=== PATIENT | male | born 1945 | race Caucasian/White ===

== ENCOUNTER 2020-08-31 13:34 | Inpatient (IN) | payer OTHER ==
[~2020-08-31] VITALS: Ht 188 cm; Wt 88.5 kg
[2020-08-31 13:42] VITALS: BP 138/69
[2020-08-31] MEDS ORDERED: LIPITOR80 MG PO (13:52)
[2020-08-31] MEDS ORDERED: PLAVIX 75 MG TA75 MG PO (13:52)
[2020-08-31] MEDS ORDERED: ASA81BEC PO (13:53)
[2020-08-31 14:17] LABS: ABSOLUTE EOSINOPHILS 0.1 thou/uL (0.0-0.7); ABSOLUTE LYMPHOCYTES 1.9 thou/uL (0.8-5.3); ABSOLUTE MONOCYTES 0.7 thou/uL (0.0-1.2); ABSOLUTE NEUTROPHILS 3.7 thou/uL (1.6-8.1); BASOPHILS 0.4 %; EOSINOPHILS 0.9 %; HEMATOCRIT 39.2 % (42.0-52.0); HEMOGLOBIN 13.3 gm/dL (14.0-18.0); LYMPHOCYTES 30.1 %; MCH 30.6 pg (26.0-34.0); MCHC 34.1 g/dL (28.0-37.0); MCV 89.9 fL (80.0-100.0); MONOCYTES 10.5 %; MPV 8.3 fl. (7.2-11.1); NUCLEATED RBCS 0 /100WBC; PLATELET COUNT* 209 thou/uL (150-400); POLYS 58.1 %; RBC 4.36 mil/uL (4.50-6.00); RDW-CV 13.8 % (10.5-14.5); WBC 6.4 thou/uL (4.0-11.0)
[2020-08-31 14:27] LABS: CALCIUM 8.4 mg/dL (8.5-10.1); CREATININE 1.2 mg/dL (0.6-1.3); POTASSIUM 3.7 mmol/L (3.5-5.1)
[2020-08-31 14:29] LABS: APTT 25.5 Seconds (25.0-31.3); PROTIME 10.6 Seconds (9.20-11.50)
[2020-08-31 14:40] LABS: ALBUMIN 2.9 g/dL (3.4-5.0); TOTAL BILIRUBIN 0.8 mg/dL (<0.1-1.0); TOTAL PROTEIN 6.3 g/dL (6.4-8.2)
--- NOTE | 2020-08-31 15:17 | EKG ---
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
[2020-08-31 16:08] LABS: URINE BILIRUBIN NEGATIVE (Negative); URINE BLOOD NEGATIVE (Negative); URINE CLARITY CLEAR; URINE COLOR YELLOW; URINE GLUCOSE-RANDOM NEGATIVE (Negative); URINE KETONES NEGATIVE (Negative); URINE LEUKOCYTES-REFLEX NEGATIVE (Negative); URINE NITRITE-REFLEX NEGATIVE (Negative); URINE PROTEIN NEGATIVE (Negative); URINE SPECIFIC GRAVITY 1.025 (1.005-1.030); URINE UROBILINOGEN 0.2 E.U./dl (0.2-1.0)
[2020-08-31 20:24] VITALS: BP 114/71
[2020-08-31 21:00] VITALS: BP 131/69
[2020-09-01] VITALS: BP 115/67
[2020-09-01 05:31] LABS: HEMATOCRIT 36.7 % (42.0-52.0); HEMOGLOBIN 12.6 gm/dL (14.0-18.0); MCH 31.3 pg (26.0-34.0); MCHC 34.4 g/dL (28.0-37.0); MPV 8.1 fl. (7.2-11.1); RBC 4.03 mil/uL (4.50-6.00); RDW-CV 13.8 % (10.5-14.5); WBC 5.2 thou/uL (4.0-11.0)
[2020-09-01 05:51] LABS: ALBUMIN 2.6 g/dL (3.4-5.0); CREATININE 0.9 mg/dL (0.6-1.3); MAGNESIUM 1.9 mg/dL (1.8-2.4); TOTAL BILIRUBIN 0.5 mg/dL (<0.1-1.0); TOTAL PROTEIN 5.8 g/dL (6.4-8.2)
[2020-09-01 06:40] VITALS: BP 132/78
[2020-09-01 09:30] VITALS: BP 105/65
[2020-09-01 12:01] VITALS: BP 123/66
[2020-09-01 16:34] VITALS: BP 105/63
[2020-09-01 21:30] VITALS: BP 108/63
[2020-09-02 01:02] VITALS: BP 122/69
[2020-09-02 05:08] VITALS: BP 124/70
[2020-09-02 05:10] LABS: HEMOGLOBIN 11.9 gm/dL (14.0-18.0); MCH 30.7 pg (26.0-34.0); MCHC 34.1 g/dL (28.0-37.0); MPV 8.4 fl. (7.2-11.1); RBC 3.89 mil/uL (4.50-6.00)
[2020-09-02 05:38] LABS: WBC 18.3 thou/uL (4.0-11.0)
[2020-09-02 05:42] LABS: ALBUMIN 2.4 g/dL (3.4-5.0); CALCIUM 7.6 mg/dL (8.5-10.1); CREATININE 0.9 mg/dL (0.6-1.3); POTASSIUM 4.1 mmol/L (3.5-5.1); TOTAL BILIRUBIN 0.3 mg/dL (<0.1-1.0); TOTAL PROTEIN 5.4 g/dL (6.4-8.2)
[2020-09-02 12:21] VITALS: BP 115/71
[2020-09-02 17:15] VITALS: BP 123/75
[2020-09-02 20:00] VITALS: BP 120/70
[2020-09-03] VITALS (7 sets, daily range): BP systolic 115–141; BP diastolic 57–78
[2020-09-03] MEDS ORDERED: PREDNISONE 10 M10 MG PO (10:22)
--- NOTE | 2020-09-03 17:26 | EKG ---
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 : 1945 Requested By: Edenilson Mckeon Order Number: [id number] Cesia MD: Jj Ivy Measurements Intervals [place] Rate: 74 P: 5 [place]: 140 QRS: -23 QRSD: 95 T: 36 QT: 421 QTc: 467 Interpretive Statements Sinus rhythm Borderline left axis deviation Borderline low voltage, extremity leads Compared to ECG 08/31/2020 13:49:29 No significant changes Electronically Signed On 09-03-2020 17:26:10 [employer] by Jj Ivy [email or web address] <ELECTRONICALLY SIGNED> By: Jj Ivy MD, [facility] 09/03/20 1726 1449 1449 Jj Ivy MD, [facility] /EPI
[2020-09-04] VITALS (8 sets, daily range): BP systolic 104–130; BP diastolic 58–69
[2020-09-04] MEDS ORDERED: NITROSTAT0.4 M1 SUBLING ×2 (15:49→16:26)
[2020-09-04] MEDS ORDERED: ZOFRAN ODT4 MG PO (16:26)
[2020-09-04] MEDS ORDERED: ASA81BEC PO (16:32)
[2020-09-04] MEDS ORDERED: PLAVIX 75 MG TA75 MG PO (16:32)
[2020-09-04] MEDS ORDERED: LIPITOR80 MG PO (16:32)
== END 2020-09-04 18:30 | disposition home health service (06) | DRG 177 ==
LOC: M.ERS 13:34 → M.TBA-ER 15:14 → M.ORTHSURG 15:14
PROVIDERS: Family Medicine; ADMIT Internal Medicine; ATTEND Internal Medicine
DX: U07.1 COVID-19 (principal); N17.0 Acute kidney failure with tubular necrosis; Z95.5 Presence of coronary angioplasty implant and graft; Z91.041 Radiographic dye allergy status; Z87.891 Personal history of nicotine dependence; Z79.82 Long term (current) use of aspirin; Z79.899 Other long term (current) drug therapy